=== PATIENT | female | born 2000 | race Caucasian/White ===

== ENCOUNTER 2022-08-06 02:50 | Emergency (ER) | payer MEDICAID ==
[~2022-08-06] VITALS: Ht 152.4 cm; Wt 66.8 kg
[2022-08-06 02:56] VITALS: BP 107/63
[2022-08-06] MEDS ORDERED: PREDNISONE 20MG TABLET PO ONE (06:00)
[2022-08-06] MEDS ORDERED: ALBUTEROL (0.083%) 2.5MG/3ML NEB HHN ONE (06:00)
[2022-08-06] MEDS: PREDNISONE 20MG TABLET PO NR ×2 (06:12→07:04)
[2022-08-06] MEDS ORDERED: ALBUTEROL (0.083%) 2.5MG/3ML NEB HHN NR (06:15)
[2022-08-06] MEDS ORDERED: ALBU6.7H3 INH (06:24)
[2022-08-06] MEDS ORDERED: P20 MT (06:24)
== END 2022-08-06 07:15 | disposition home or self-care (01) ==
LOC: ER 02:50
DX: J45.901 Unspecified asthma with (acute) exacerbation (principal); J06.9 Acute upper respiratory infection, unspecified
CPT/HCPCS: 81025; 94640; 99283; J7512; Z7610